=== PATIENT | male | born 1985 | race Caucasian/White ===

== ENCOUNTER 2022-12-04 21:56 | Emergency (ER) | payer SELFPAY ==
[~2022-12-04] VITALS: Ht 172.7 cm; Wt 68.0 kg
[2022-12-04 22:03] VITALS: BP 123/78; O2SAT 97
[2022-12-04] MEDS ORDERED: TETANUS, DIPHTHERIA, PERTUSSIS VAC/PF 0.5ML (>10YR OLD) IM ONE (23:15)
[2022-12-04] MEDS ORDERED: LIDOCAINE HCL/PF 1% 10 MG/ML 5ML VIAL INFIL ONE (23:15)
[2022-12-04] MEDS ORDERED: BACITRACIN ZINC OINT UDPKT TOP ONE (23:15)
[2022-12-05] MEDS ORDERED: BO1 TP (01:39)
[2022-12-05] MEDS ORDERED: NAPR-681 MT (01:39)
[2022-12-05 02:12] VITALS: PULSE 83; RESP 16; TEMP 97.4
== END 2022-12-05 02:15 | disposition home or self-care (01) ==
LOC: ER 23:13
DX: S01.81XA Laceration without foreign body of other part of head, initial encounter (principal); X58.XXXA Exposure to other specified factors, initial encounter; Y93.89 Activity, other specified; Y92.89 Other specified places as the place of occurrence of the external cause; Y99.8 Other external cause status
CPT/HCPCS: 99283; 73110; 90715; 12005; 90471; J3490